=== PATIENT | female | born 2000 | race Caucasian/White ===

== ENCOUNTER 2021-04-02 12:33 | Emergency (ER) | payer MEDICAID, SELFPAY ==
[2021-04-02 13:03] VITALS: BP 120/73; PULSE 79; RESP 18; TEMP 36.7; O2SAT 96; BMI 24.0
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
== END 2021-04-02 14:55 | disposition left against medical advice (07) ==
PROVIDERS: Emergency Provider Emergency Medicine; PCP Pediatrics
DX: S09.93XA Unspecified injury of face, initial encounter (principal); S49.90XA Unspecified injury of shoulder and upper arm, unspecified arm, initial encounter; V49.9XXA Car occupant (driver) (passenger) injured in unspecified traffic accident, initial encounter; Y93.9 Activity, unspecified; Y92.9 Unspecified place or not applicable; Y99.9 Unspecified external cause status
CPT/HCPCS: 99281; 99282